=== PATIENT | female | born 1955 | race Caucasian/White ===

== ENCOUNTER 2017-04-24 06:47 | Day surgery (SDC) | payer OTHER ==
[2017-04-19 10:56] LABS: Basophils # (auto) 0.1 uL; Basophils % (auto) 0.7 % (0.0-2.0); Eosinophils # (auto) 0.2 uL; Eosinophils % (auto) 2.2 % (0.0-7.0); Hematocrit 38.7 % (36.0-46.0); Hemoglobin 13.3 g/dL (12.2-16.2); Lymphocytes # (auto) 1.3 uL; Lymphocytes % (auto) 16.3 % (10.0-50.0); Mean Corpuscular Hemoglobin 29.2 pg (28.0-32.0); Mean Corpuscular Hgb Conc. 34.3 g/dL (32.0-36.0); Mean Corpuscular Volume 85.2 fL (80.0-100.0); Mean Platelet Volume 7.9 fL (7.4-10.4); Monocytes # (auto) 0.6 uL; Monocytes % (auto) 7.5 % (0.0-12.0); Neutrophils # (auto) 5.7 uL; Neutrophils % (auto) 73.3 % (37.0-80.0); Platelet Count (auto) 384 10^3/uL (140-450); Red Cell Distribution Width 14.5 % (11.6-16.0); White Blood Cell 7.8 10^3/uL (4.4-10.8)
[2017-04-19 11:02] LABS: Urine Bilirubin Negative (Negative); Urine Blood Negative /uL (Negative); Urine Color Yellow (Yellow); Urine Glucose Normal (Normal); Urine Ketone Negative (Negative); Urine Nitrite Negative (Negative); Urine RBC 1 /hpf (0 - 4); Urine Squamous Epithelial Cell MOD /hpf (<5); Urine Urobilinogen Normal (Negative)
[2017-04-19 11:10] LABS: INR 0.93 (0.9-1.15); Prothrombin Time 10.1 sec (9.37-12.3)
[2017-04-19 11:19] LABS: Albumin 3.7 g/dL (3.4-5.0); Bilirubin, Total 0.4 mg/dL (0.2-1.0); Calcium 9.3 mg/dL (8.5-10.1); Total Protein 7.7 g/dL (6.4-8.2)
[~2017-04-24] VITALS: Ht 162.6 cm; Wt 82.6 kg
[~2017-04-24 06:47] MED LIST: AMLO10CA42 PO; ESTR0.5T3 PO; FENO48TA6 OR; METO-169 PO; OMEP20CA74 PO; PRAV20TA3 PO
[2017-04-24] MEDS ORDERED: ceFAZolin 1GM/50ML D5W 50 ML IV ONE (07:18)
[2017-04-24] MEDS ORDERED: BUPIVACAINE 0.75% INJ 10ML MPV SDV IJ ONE (08:19)
[2017-04-24] MEDS ORDERED: fentaNYL CITRATE 100 MCG/2 ML VL ONE (08:33)
[2017-04-24] MEDS ORDERED: GLYCOPYRROLATE 0.2 MG/ML 1ML VIAL IV ONE (08:39)
[2017-04-24] MEDS ORDERED: DEXAMETHASONE SOD PHOS 10MG/1ML VIAL INJ IV ONE (08:39)
[2017-04-24] MEDS ORDERED: ONDANSETRON HCL 4 MG/2 ML VIAL IV ONE ×2 (08:39→09:30)
[2017-04-24] MEDS ORDERED: PROPOFOL 10 MG/ML 20 ML IV ONE (08:39)
[2017-04-24] MEDS ORDERED: HYDROmorphone HCL 2 MG/ML VL IV PRN (09:30)
[2017-04-24 10:28] VITALS: BP 116/75
== END 2017-04-24 10:28 | disposition home or self-care (01) ==
LOC: SUR 06:47
PROVIDERS: ATTEND Podiatrist Foot & Ankle Surgery
DX: T84.84XA Pain due to internal orthopedic prosthetic devices, implants and grafts, initial encounter (principal)
CPT/HCPCS: 20680; 36415; 80053; 81001; 85025; 85610; 85730; 88300; J0690; J1100; J2405; J2704; J3010; J3490

== ENCOUNTER 2020-01-27 06:57 | Day surgery (SDC) | payer BC ==
[2020-01-26 12:48] LABS: Basophils # (auto) 0.1 10 ^3/uL (0-0.2); Basophils % (auto) 1.1 % (0.0-2.0); Eosinophils # (auto) 0.4 10 ^3/uL (0-0.8); Eosinophils % (auto) 5.5 % (0.0-7.0); Hematocrit 42.2 % (36.0-46.0); Hemoglobin 14.2 g/dL (12.2-16.2); Lymphocytes # (auto) 1.3 10 ^3/uL (0.4-5.4); Lymphocytes % (auto) 19.5 % (10.0-50.0); Mean Corpuscular Hgb Conc. 33.6 g/dL (32.0-36.0); Mean Corpuscular Volume 83.5 fL (80.0-100.0); Monocytes # (auto) 0.5 10 ^3/uL (0-1.3); Monocytes % (auto) 7.1 % (0.0-12.0); Neutrophils # (auto) 4.6 10 ^3/uL (1.6-8.6); Neutrophils % (auto) 66.8 % (37.0-80.0); Nucleated Red Blood Cells % 0.1 %; Platelet Count (auto) 340 10^3/uL (140-450); Red Blood Cells 5.05 10^6/uL (4.0-5.20); Red Cell Distribution Width 14.2 % (11.8-14.3); White Blood Cell 6.9 10^3/uL (4.4-10.8)
[2020-01-26 12:55] LABS: Urine Bacteria FEW /hpf (None Seen); Urine Blood Negative /uL (Negative); Urine Mucus FEW (None Seen); Urine Specific Gravity 1.027 (1.001-1.035); Urine WBC 63 /hpf (0 - 5)
[2020-01-26 13:03] LABS: INR 1.02 (0.9-1.15); Partial Thromboplastin Time 26.3 sec (23.64-32.05)
[2020-01-26 13:10] LABS: Albumin 3.9 g/dL (3.4-5.0); Calcium 9.2 mg/dL (8.5-10.1); Potassium 4.4 mmol/L (3.5-5.1)
[2020-01-26 13:13] LABS: BUN/Creatinine Ratio 27.4; Bilirubin, Total 0.4 mg/dL (0.2-1.0); Total Protein 8.2 g/dL (6.4-8.2)
[~2020-01-27] VITALS: Ht 162.6 cm; Wt 80.3 kg
[~2020-01-27 06:57] MED LIST changes: +AMLO10CA33 PO; -AMLO10CA42 PO; +CHOL200031 PO; +FENO48TA12 OR; -FENO48TA6 OR; +[UNRECOGNIZED DRUG - CODE] PO
[2020-01-27] MEDS ORDERED: ceFAZolin 1GM/50ML 50 ML IV ONE (07:27)
[2020-01-27] MEDS ORDERED: ROPIVACAINE 0.5% (5MG/ML) 20ML AMPULE IJ ONE (08:59)
[2020-01-27] MEDS ORDERED: MEPERIDINE HCL (50 MG/ML) 1 ML VIAL ONE (09:09)
[2020-01-27] MEDS ORDERED: MIDAZOLAM HCL 1MG/1ML-2 ML VIAL ONE (09:09)
[2020-01-27] MEDS ORDERED: fentaNYL CITRATE 100 MCG/2 ML VL ONE (09:09)
[2020-01-27] MEDS ORDERED: PHENYLEPHRINE HCL 10 MG/ML VL IV ONE (09:15)
[2020-01-27] MEDS ORDERED: DexAMETHasone SOD PHOS 10MG/1ML VIAL INJ ONE (09:27)
[2020-01-27] MEDS ORDERED: MORPHINE SULFATE 4 MG/ML SYR/VIAL IV PRN (09:45)
[2020-01-27] MEDS ORDERED: LABETALOL HCL 5 MG/ML 4ML SYRINGE IV PRN (09:45)
[2020-01-27] MEDS ORDERED: MIDAZOLAM HCL 1MG/1ML-2 ML VIAL IV PRN (09:45)
[2020-01-27] MEDS ORDERED: ONDANSETRON HCL 4 MG/2 ML VIAL IV PRN (09:45)
[2020-01-27] MEDS ORDERED: HYDROmorphone HCL 2 MG/ML VL IV PRN (09:45)
[2020-01-27] MEDS ORDERED: ePHEDrine SULFATE 50 MG/ML AMP IV PRN (09:45)
[2020-01-27] MEDS ORDERED: PROPOFOL 10 MG/ML 20 ML IV ONE (09:58)
[2020-01-27 11:24] VITALS: BP 111/68
== END 2020-01-27 13:29 | disposition home or self-care (01) ==
LOC: SUR 06:57
PROVIDERS: ATTEND Podiatrist Foot & Ankle Surgery
DX: M20.21 Hallux rigidus, right foot (principal); M20.5X1 Other deformities of toe(s) (acquired), right foot; S92.351A Displaced fracture of fifth metatarsal bone, right foot, initial encounter for closed fracture; S96.011A Strain of muscle and tendon of long flexor muscle of toe at ankle and foot level, right foot, initial encounter; I10 Essential (primary) hypertension; I25.10 Atherosclerotic heart disease of native coronary artery without angina pectoris; E78.5 Hyperlipidemia, unspecified; E03.9 Hypothyroidism, unspecified; E66.9 Obesity, unspecified; Z98.891 History of uterine scar from previous surgery; Z90.710 Acquired absence of both cervix and uterus; Z68.30 Body mass index [BMI] 30.0-30.9, adult; Z79.899 Other long term (current) drug therapy; X58.XXXA Exposure to other specified factors, initial encounter; Y93.89 Activity, other specified; Y92.89 Other specified places as the place of occurrence of the external cause; Y99.8 Other external cause status
CPT/HCPCS: 28200; 28289; 28485; 36415; 73620; 80053; 81001; 85025; 85610; 85730; 88304; 88311; C1713; C1769; J0690; J1100; J2175; J2250; J2370; J2704; J2795; J3010